=== PATIENT | female | born 1990 | race Caucasian/White ===

== ENCOUNTER 2020-12-01 10:51 | Emergency (ER) | payer OTHER, SELFPAY ==
[2020-12-01] VITALS (9 sets, daily range): BP systolic 101–153; BP diastolic 59–105; PULSE 92–123; RESP 15–20; TEMP 36.7–37.3; O2SAT 97–100; BMI 21.0
--- NOTE | 2020-12-01 10:59 | ED_ITS ---
HPI - Overdose General Chief Complaint: Psychiatric Symptoms Stated Complaint: INTENTIONAL MED OD LAST NIGHT 9PM Time Seen by Provider: 12/01/20 10:56 Source: patient and EMS Mode of arrival: EMS Limitations: no limitations History of Present Illness HPI Narrative: 30 yo female jose she took 30 to possibly 60 tabs of 10mg amitryptiline and fluoxetine 10mg which she takes for SI brought to ED after co- worker checked on her no prior attempts in past, denies prior psychiatric admissions complaint: intentional overdose Onset (ago): day(s) (last night at 930pm) Timing confirmed by: other (self) Intent: suicide attempt How Overdose Was Discovered: other (co worker came over to check on her) Context: Intentional Overdose: other Treatments Prior to Arrival: none Related Data Allergies Allergy/AdvReac Type Severity Reaction Status Date / Time No Known Allergies Allergy Verified 12/01/20 10:56 Review of Systems Review of Systems: Constitutional : No Fever, No Chills ENT/Mouth : No Ear Pain, No Nasal Congestion, No sore throat Eyes: No Eye Pain, No Swelling, No Redness Cardiovascular : No Chest Pain, No SOB Respiratory : No Cough, No Sputum, No Dyspnea Gastrointestinal : No Nausea, No Vomiting, No Diarrhea, No Hematochezia, No Melena Genitourinary : No Dysuria, No Urinary Frequency, No Hematuria Musculoskeletal : No Myalgias Skin : No Skin Lesions, No rash Neuro : No Weakness, No Numbness, No Paresthesias, No Dizziness, No Headache Psych : positive Anxiety, positive Depression, positive SI no HI Heme/Lymph: No Lymphadenopathy Endocrine : No Polyuria, No Polydipsia All other systems reviewed and are negative [facility] Past Medical History Attestation statement: The following information was validated with the patient. Medical History Anxiety Depression Social History Social History (Updated 12/01/20 @ 11:14 by Ginny Magaña DO) Alcohol intake: current Smoking Status: Never smoker Use of substances other than those prescribed or required for medical reasons: No Advance Directives: No Advance Directives Information Provided: No Physical Exam Vital Signs: Vital Signs: Last Vital Signs Temp 99.2 F 12/01/20 11:23 Pulse 112 H 12/01/20 12:49 Resp 16 02/25/21 12:49 BP 121/85 12/01/20 12:49 Pulse Ox 99 12/01/20 12:49 Body Mass Index 21.0 Appearance: Alert. Oriented X3. Anxious, mild acute distress. Eyes: Pupils equal, round and reactive to light. 4mm ENT: Pharynx normal. Neck: Normal inspection. Neck supple. CVS: Normal heart rate and rhythm. Pulses normal. Respiratory: No respiratory distress. Breath sounds normal. Abdomen: Soft and nontender. Skin: Skin warm and dry. Normal skin color. Normal skin turgor. Extremities: No lower extremity edema. No calf ttp Neuro: Oriented X 3. No motor deficit. No sensory deficit. 3+ bilateral DTR and 2 beat clonus Psych: anxiety, + depression, + SI Course Course Course Narrative: much improved after ativan - she is resting at this time, VS improved HR 102, pupils 3mm reactive, 1 beat clonus, repeat EKG ordered, will then consult poison control to reasses timeframe. signed out pending full clearance, RN to repeat call poison control Patient placed in physician observation at 320pm. The indication for obse rvation is that the patient needs more time to see if her overdose symptoms improve or if she will need to be admitted. At this time the patient is well developed well nourished, lungs clear, she does have tachycardia low 100s, RRR, abd is nontender, neuro is intact. signed out to Dr. Harris pending full workup MDM - Overdose MDM Narrative Medical decision making narrative: 30 yo female with fluoxetine and amitryptiline overdose 930pm last night in SI attempt will need tox labs, ativan for anxiety, EKG, call to poison control, once medically cleared will need crisis consult Lab Data Result diagrams: 12/01/20 11:28 12/01/20 11:29 Labs: Lab Results 12/01/20 12/01/20 12/01/20 Range/Units 11:20 11:20 11:20 WBC (4.8-10.8) X10*3/uL RBC (4.20-5.50) X10*6/uL Hgb (12.0-16.0) g/dl Hct (37-47) % MCV (80-98) fL MCH (27.0-33.0) pg MCHC (31.0-35.0) g/dl RDW (11.0-16.0) % Plt Count (160-400) X10*3/uL MPV (9.4-12.3) fL Immature Gran % (Auto) (0.0-0.4) % Neut % (Auto) (45-73) % Lymph % (Auto) (20-40) % Harlan % (Auto) (2-11) % Eos % (Auto) (0-4) % Baso % (Auto) (0-2) % Lymph # (Auto) (1.2-4.9) X10*3/uL [place] # (Auto) (0.1-1.2) X10*3/uL Eos # (Auto) (0.0-0.4) X10*3/uL Baso # (Auto) (0.0-0.2) X10*3/uL Abs Immat Gran (auto) (0.00-0.03) X10*3/uL Absolute Neuts (auto) (2.0-8.3) X10*3/uL Absolute Nucleated RBC (0.0-0.012) X10*3/uL Nucleated RBC % (auto) (0.0-0.2) /100WBC PT (10.8-13.0) SEC INR (0.9-1.1) APTT (24.1-38.0) SEC VBG pH (7.32-7.43) VBG pCO2 mmHg VBG pO2 mmHg VBG HCO3 mmol/L VBG O2 Saturation % VBG Base Excess mmol/L Sodium (135-145) mmol/L Potassium (3.3-5.1) mmol/L Chloride (96-108) mmol/L Carbon Dioxide (22-29) mmol/L Anion Gap (12-20) BUN (9-16) mg/dL Creatinine (0.5-1.4) mg/dL Estim Creat Clear Calc Estimated GFR Random Glucose (60-115) mg/dL Calcium (8.4-10.2) mg/dL Magnesium (1.6-2.6) mg/dL Total Bilirubin (0.0-1.0) mg/dL Direct Bilirubin (0.0-0.5) mg/dL AST (5-31) U/L ALT (0-31) U/L Alkaline Phosphatase (39-117) U/L Total Protein (6.5-8.0) g/dL Albumin (3.5-5.0) g/dL Urine Color YELLOW Urine Appearance CLEAR Urine pH 5.5 (5.0-8.0) Ur Specific [place] 1.020 (1.005-1.025) Urine Protein NEG (NEG-TRACE) MG/DL Urine Glucose (UA) NEG (NEG) MG/DL Urine Ketones NEG (NEG) MG/DL Urine Blood NEG (NEG) Urine Nitrite NEG (NEG) Ur Leukocyte Esterase NEG (NEG) Urine Test NEGATIVE (NEGATIVE) Salicylates (15-30) mg/dL Urine Opiates Screen Not Detected (Not Detect) Acetaminophen (<30) mcg/mL Ur Barbiturates Screen Not Detected (Not Detect) Ur Phencyclidine Scrn Not Detected (Not Detect) Ur Amphetamines Screen Not Detected (Not Detect) U Benzodiazepines Scrn Not Detected (Not Detect) Urine Cocaine Screen Not Detected (Not Detect) U Marijuana (THC) Screen Not Detected (Not Detect) Ethyl Alcohol mg/dL Acetone, Qual (Negative) COVID-19 (DAMARIS) (Negative) COVID-19 Clin Com 12/01/20 12/01/20 12/01/20 Range/Units 11:24 11:28 11:28 WBC 11.2 H (4.8-10.8) X10*3/uL RBC 4.39 (4.20-5.50) X10*6/uL Hgb 13.4 (12.0-16.0) g/dl Hct 40.3 (37-47) % MCV 91.8 (80-98) fL MCH 30.5 (27.0-33.0) pg MCHC 33.3 (31.0-35.0) g/dl RDW 12.3 (11.0-16.0) % Plt Count 335 (160-400) X10*3/uL MPV 9.5 (9.4-12.3) fL Immature Gran % (Auto) 0.3 (0.0-0.4) % Neut % (Auto) 83.3 H (45-73) % Lymph % (Auto) 13.0 L (20-40) % Harlan % (Auto) 2.7 (2-11) % Eos % (Auto) 0.3 (0-4) % Baso % (Auto) 0.4 (0-2) % Lymph # (Auto) 1.5 (1.2-4.9) X10*3/uL [place]lan # (Auto) 0.3 (0.1-1.2) X10*3/uL Eos # (Auto) 0.0 (0.0-0.4) X10*3/uL Baso # (Auto) 0.1 (0.0-0.2) X10*3/uL Abs Immat Gran (auto) 0.03 (0.00-0.03) X10*3/uL Absolute Neuts (auto) 9.3 H (2.0-8.3) X10*3/uL Absolute Nucleated RBC 0.000 (0.0-0.012) X10*3/uL Nucleated RBC % (auto) 0.0 (0.0-0.2) /100WBC PT 11.5 (10.8-13.0) SEC INR 1.0 (0.9-1.1) APTT 28.4 (24.1-38.0) SEC VBG pH (7.32-7.43) VBG pCO2 mmHg VBG pO2 mmHg VBG HCO3 mmol/L VBG O2 Saturation % VBG Base Excess mmol/L Sodium (135-145) mmol/L Potassium (3.3-5.1) mmol/L Chloride (96-108) mmol/L Carbon Dioxide (22-29) mmol/L Anion Gap (12-20) BUN (9-16) mg/dL Creatinine (0.5-1.4) mg/dL Estim Creat Clear Calc Estimated GFR Random Glucose (60-115) mg/dL Calcium (8.4-10.2) mg/dL Magnesium (1.6-2.6) mg/dL Total Bilirubin (0.0-1.0) mg/dL Direct Bilirubin (0.0-0.5) mg/dL AST (5-31) U/L ALT (0-31) U/L Alkaline Phosphatase (39-117) U/L Total Protein (6.5-8.0) g/dL Albumin (3.5-5.0) g/dL Urine Color Urine Appearance Urine pH (5.0-8.0) Ur Specific [place] (1.005-1.025) Urine Protein (NEG-TRACE) MG/DL Urine Glucose (UA) (NEG) MG/DL Urine Ketones (NEG) MG/DL Urine Blood (NEG) Urine Nitrite (NEG) Ur Leukocyte Esterase (NEG) Urine Test (NEGATIVE) Salicylates (15-30) mg/dL Urine Opiates Screen (Not Detect) Acetaminophen (<30) mcg/mL Ur Barbiturates Screen (Not Detect) Ur Phencyclidine Scrn (Not Detect) Ur Amphetamines Screen (Not Detect) U Benzodiazepines Scrn (Not Detect) Urine Cocaine Screen (Not Detect) U Marijuana (THC) Screen (Not Detect) Ethyl Alcohol mg/dL Acetone, Qual (Negative) COVID-19 (DAMARIS) Negative (Negative) COVID-19 Clin Com See Note 12/01/20 12/01/20 12/01/20 Range/Units 11:28 11:28 11:29 WBC (4.8-10.8) X10*3/uL RBC (4.20-5.50) X10*6/uL Hgb (12.0-16.0) g/dl Hct (37-47) % MCV (80-98) fL MCH (27.0-33.0) pg MCHC (31.0-35.0) g/dl RDW (11.0-16.0) % Plt Count (160-400) X10*3/uL MPV (9.4-12.3) fL Immature Gran % (Auto) (0.0-0.4) % Neut % (Auto) (45-73) % Lymph % (Auto) (20-40) % Harlan % (Auto) (2-11) % Eos % (Auto) (0-4) % Baso % (Auto) (0-2) % Lymph # (Auto) (1.2-4.9) X10*3/uL [place] # (Auto) (0.1-1.2) X10*3/uL Eos # (Auto) (0.0-0.4) X10*3/uL Baso # (Auto) (0.0-0.2) X10*3/uL Abs Immat Gran (auto) (0.00-0.03) X10*3/uL Absolute Neuts (auto) (2.0-8.3) X10*3/uL Absolute Nucleated RBC (0.0-0.012) X10*3/uL Nucleated RBC % (auto) (0.0-0.2) /100WBC PT (10.8-13.0) SEC INR (0.9-1.1) APTT (24.1-38.0) SEC VBG pH (7.32-7.43) VBG pCO2 mmHg VBG pO2 mmHg VBG HCO3 mmol/L VBG O2 Saturation % VBG Base Excess mmol/L Sodium 142 (135-145) mmol/L Potassium 4.6 (3.3-5.1) mmol/L Chloride 108 (96-108) mmol/L Carbon Dioxide 27 (22-29) mmol/L Anion Gap 12 (12-20) BUN 14 (9-16) mg/dL Creatinine 0.90 (0.5-1.4) mg/dL Estim Creat Clear Calc 71.6 Estimated GFR > 60 Random Glucose 102 (60-115) mg/dL Calcium 9.3 (8.4-10.2) mg/dL Magnesium 2.0 (1.6-2.6) mg/dL Total Bilirubin 0.3 (0.0-1.0) mg/dL Direct Bilirubin 0.2 (0.0-0.5) mg/dL AST 22 (5-31) U/L ALT 31 (0-31) U/L Alkaline Phosphatase 79 (39-117) U/L Total Protein 7.5 (6.5-8.0) g/dL Albumin 4.3 (3.5-5.0) g/dL Urine Color Urine Appearance Urine pH (5.0-8.0) Ur Specific [place] (1.005-1.025) Urine Protein (NEG-TRACE) MG/DL Urine Glucose (UA) (NEG) MG/DL Urine Ketones (NEG) MG/DL Urine Blood (NEG) Urine Nitrite (NEG) Ur Leukocyte Esterase (NEG) Urine Test (NEGATIVE) Salicylates < 5.0 L (15-30) mg/dL Urine Opiates Screen (Not Detect) Acetaminophen < 1 (<30) mcg/mL Ur Barbiturates Screen (Not Detect) Ur Phencyclidine Scrn (Not Detect) Ur Amphetamines Screen (Not Detect) U Benzodiazepines Scrn (Not Detect) Urine Cocaine Screen (Not Detect) U Marijuana (THC) Screen (Not Detect) Ethyl Alcohol < 10 mg/dL Acetone, Qual Negative (Negative) COVID-19 (DAMARIS) (Negative) COVID-19 Clin Com 12/01/20 Range/Units 12:21 WBC (4.8-10.8) X10*3/uL RBC (4.20-5.50) X10*6/uL Hgb (12.0-16.0) g/dl Hct (37-47) % MCV (80-98) fL MCH (27.0-33.0) pg MCHC (31.0-35.0) g/dl RDW (11.0-16.0) % Plt Count (160-400) X10*3/uL MPV (9.4-12.3) fL Immature Gran % (Auto) (0.0-0.4) % Neut % (Auto) (45-73) % Lymph % (Auto) (20-40) % Harlan % (Auto) (2-11) % Eos % (Auto) (0-4) % Baso % (Auto) (0-2) % Lymph # (Auto) (1.2-4.9) X10*3/uL [place] # (Auto) (0.1-1.2) X10*3/uL Eos # (Auto) (0.0-0.4) X10*3/uL Baso # (Auto) (0.0-0.2) X10*3/uL Abs Immat Gran (auto) (0.00-0.03) X10*3/uL Absolute Neuts (auto) (2.0-8.3) X10*3/uL Absolute Nucleated RBC (0.0-0.012) X10*3/uL Nucleated RBC % (auto) (0.0-0.2) /100WBC PT (10.8-13.0) SEC INR (0.9-1.1) APTT (24.1-38.0) SEC VBG pH 7.39 (7.32-7.43) VBG pCO2 38 mmHg VBG pO2 39 mmHg VBG HCO3 23 mmol/L VBG O2 Saturation 67.0 % VBG Base Excess -0.9 mmol/L Sodium (135-145) mmol/L Potassium (3.3-5.1) mmol/L Chloride (96-108) mmol/L Carbon Dioxide (22-29) mmol/L Anion Gap (12-20) BUN (9-16) mg/dL Creatinine (0.5-1.4) mg/dL Estim Creat Clear Calc Estimated GFR Random Glucose (60-115) mg/dL Calcium (8.4-10.2) mg/dL Magnesium (1.6-2.6) mg/dL Total Bilirubin (0.0-1.0) mg/dL Direct Bilirubin (0.0-0.5) mg/dL AST (5-31) U/L ALT (0-31) U/L Alkaline Phosphatase (39-117) U/L Total Protein (6.5-8.0) g/dL Albumin (3.5-5.0) g/dL Urine Color Urine Appearance Urine pH (5.0-8.0) Ur Specific [place] (1.005-1.025) Urine Protein (NEG-TRACE) MG/DL Urine Glucose (UA) (NEG) MG/DL Urine Ketones (NEG) MG/DL Urine Blood (NEG) Urine Nitrite (NEG) Ur Leukocyte Esterase (NEG) Urine Test (NEGATIVE) Salicylates (15-30) mg/dL Urine Opiates Screen (Not Detect) Acetaminophen (<30) mcg/mL Ur Barbiturates Screen (Not Detect) Ur Phencyclidine Scrn (Not Detect) Ur Amphetamines Screen (Not Detect) U Benzodiazepines Scrn (Not Detect) Urine Cocaine Screen (Not Detect) U Marijuana (THC) Screen (Not Detect) Ethyl Alcohol mg/dL Acetone, Qual (Negative) COVID-19 (DAMARIS) (Negative) COVID-19 Clin Com ECG Data Attestation: I personally reviewed and interpreted this ECG as follows: ECG interpretation date: 12/01/20 ECG interpretation time: 11:23 Interpretation: Rate: 120 Rhythm: sinus tachycardia [place]: normal Normal P waves. Normal CELE. Normal QRS complex. ST T wave : normal qTC: normal prior studies: no acute ischemia The study has been interpreted contemporaneously by me. . EKG# 2 1234pm Rate: 113 Rhythm: sinus tachycardia [place]: normal Normal P waves. Normal CELE. Normal QRS complex. ST T wave : normal qTC: normal prior studies: no acute ischemia The study has been interpreted contemporaneously by me. . EKG #3 330pm Rate: 111 Rhythm: sinus tachycardia [place]: normal Normal P waves. Normal CELE. Normal QRS complex. ST T wave : normal qTC: normal prior studies: no acute ischemia The study has been interpreted contemporaneously by me. . Discharge Plan Discharge Clinical Impression: Suicidal ideation Depression Qualifiers: Depression Type: unspecified Qualified Code(s): F32.9 - Major depressive disorder, single episode, unspecified Overdose Qualifiers: Encounter type: initial encounter Injury intent: intentional self-harm Qualified Code(s): T50.902A - Poisoning by unspecified drugs, medicaments and biological substances, intentional self-harm, initial encounter
--- NOTE | 2020-12-01 11:00 | ECG_ITS ---
Test Reason : OVERDOSE Blood Pressure : / mmHG Vent. Rate : 120 BPM Atrial Rate : 120 BPM P-R Int : 132 ms QRS Dur : 078 ms QT Int : 324 ms P-R-T Axes : 073 058 037 degrees QTc Int : 457 ms Sinus tachycardia Possible Left atrial enlargement Borderline ECG No previous ECGs available Referred By: Ginny Magaña Electronically Signed By:ELENA BOLIVAR MD
[2020-12-01 11:40] LABS: MANUAL DIFF FLAG NO
[2020-12-01 11:43] LABS: Basophils Absolute Auto 0.1 X10*3/uL (0.0-0.2); Basophils Percent Auto 0.4 % (0-2); Eosinophils Percent Auto 0.3 % (0-4); Hematocrit 40.3 % (37-47); Hemoglobin 13.4 g/dl (12.0-16.0); Imm Gran Abs Auto 0.03 X10*3/uL (0.00-0.03); Imm Gran Pct Auto 0.3 % (0.0-0.4); Lymphocytes Absolute Auto 1.5 X10*3/uL (1.2-4.9); Mean Corpuscular HGB Conc 33.3 g/dl (31.0-35.0); Mean Corpuscular Hemoglobin 30.5 pg (27.0-33.0); Mean Corpuscular Volume 91.8 fL (80-98); Mean Platelet Volume 9.5 fL (9.4-12.3); Monocytes Absolute Auto 0.3 X10*3/uL (0.1-1.2); Monocytes Percent Auto 2.7 % (2-11); Neutrophils Absolute Auto 9.3 X10*3/uL (2.0-8.3); Neutrophils Percent Auto 83.3 % (45-73); Platelet Count 335 X10*3/uL (160-400); Red Blood Count 4.39 X10*6/uL (4.20-5.50); Red Cell Distribution Width 12.3 % (11.0-16.0); White Blood Count 11.2 X10*3/uL (4.8-10.8)
[2020-12-01 11:48] LABS: Glucose Urine UA NEG (NEG); Leukocyte Esterase Urine NEG (NEG); Nitrite Urine NEG (NEG); PH 5.5 (5.0-8.0); Urine Blood NEG (NEG); Urine Ketones NEG (NEG); Urine Protein NEG (NEG-TRACE)
[2020-12-01 11:48] LABS: Prothrombin Time 11.5 SEC (10.8-13.0)
[2020-12-01 11:51] LABS: Partial Thromboplastin Time 28.4 SEC (24.1-38.0)
[2020-12-01 11:59] LABS: COVID-19 Test Negative (Negative)
[2020-12-01 12:01] LABS: Appearance Urine CLEAR; Color Urine YELLOW; UPreg QC Valid YES; Urine Pregnancy NEGATIVE (NEGATIVE)
[2020-12-01 12:04] LABS: Ethanol < 10 mg/dL
[2020-12-01 12:08] LABS: Alanine Aminotransferase 31 U/L (0-31); Albumin Level 4.3 g/dL (3.5-5.0); Alkaline Phosphatase 79 U/L (39-117); Anion Gap 12 (12-20); Aspartate Amino Transferase 22 U/L (5-31); Bilirubin Direct 0.2 mg/dL (0.0-0.5); Bilirubin Total 0.3 mg/dL (0.0-1.0); Blood Urea Nitrogen 14 mg/dL (9-16); Calcium 9.3 mg/dL (8.4-10.2); Carbon Dioxide 27 mmol/L (22-29); Chloride 108 mmol/L (96-108); Creatinine Clr Calc Pharmacy 71.6; Estimated Glomerular Filt Rate > 60; Glucose Random 102 mg/dL (60-115); Potassium 4.6 mmol/L (3.3-5.1); Sodium 142 mmol/L (135-145); Total Protein 7.5 g/dL (6.5-8.0)
[2020-12-01 12:11] LABS: Salicylate < 5.0 mg/dL (15-30)
[2020-12-01] MEDS: LORazepam 2 MG/ML VIAL 0.5 MG IVPUSH (12:13)
[2020-12-01] MEDS: 0.9 % Sodium Chloride 1,000 ML 999 ML IVCONT ×2 (12:14→20:42)
[2020-12-01 12:31] LABS: Base Excess VBG -0.9 mmol/L; HCO3 VBG 23 mmol/L; PCO2 VBG 38 mmHg; PO2 VBG 39 mmHg; pH VBG 7.39 (7.32-7.43)
[2020-12-01 12:32] LABS: Amphetamine Screen Urine Not Detected (Not Detect); Barbiturates, Urine Not Detected (Not Detect); Benzodiazepines Screen Urine Not Detected (Not Detect); Cannabinoid Screen Urine Not Detected (Not Detect); Cocaine Screen Urine Not Detected (Not Detect); Opiate Screen Urine Not Detected (Not Detect); Phencyclidine Screen Urine Not Detected (Not Detect)
[2020-12-01 12:41] LABS: Acetone, serum QL Negative (Negative)
[2020-12-01] MEDS: LORazepam 2 MG/ML VIAL 1 MG IVPUSH ×2 (12:48→20:42)
--- NOTE | 2020-12-01 13:00 | PC.NURSE ---
Spoke with poison Control, state to monitor patient for seizure, repeat EKGs every couple hours, monitor heart rate, and check to see if patient's dizziness subsides. Labs Obtained. Pt calm, cooperative. Verbalizes understanding of current plan of care. will continue to monitor.
[2020-12-01 13:04] LABS: Acetaminophen LAB < 1 mcg/mL (<30)
--- NOTE | 2020-12-01 14:00 | ECG_ITS ---
Test Reason : REPEAT Blood Pressure : / mmHG Vent. Rate : 113 BPM Atrial Rate : 113 BPM P-R Int : 136 ms QRS Dur : 078 ms QT Int : 320 ms P-R-T Axes : 073 055 038 degrees QTc Int : 438 ms Sinus tachycardia Possible Left atrial enlargement Borderline ECG When compared with ECG of 01-DEC-2020 11:14, No significant change was found Referred By: Ginny Magaña Electronically Signed By:ELENA BOLIVAR MD
--- NOTE | 2020-12-01 15:08 | ECG_ITS ---
Test Reason : OVERDOSE Blood Pressure : / mmHG Vent. Rate : 111 BPM Atrial Rate : 111 BPM P-R Int : 138 ms QRS Dur : 078 ms QT Int : 322 ms P-R-T Axes : 071 049 035 degrees QTc Int : 437 ms Sinus tachycardia Possible Left atrial enlargement Borderline ECG When compared with ECG of 01-DEC-2020 12:29, No significant change was found Referred By: Ginny Magaña Electronically Signed By:ELENA BOLIVAR MD
--- NOTE | 2020-12-01 15:10 | PC.NURSE ---
Spoke again with Poison Control, who state patient can't be cleared untill patient's heartrate begins staying below 100 and that patient no longer feeling dizziness.
--- NOTE | 2020-12-01 17:42 | PC.NURSE ---
Spoke with Poison control again, asked for this nurse to update them with repeat EKG at 1800 when EKG is obtained.
--- NOTE | 2020-12-01 18:00 | ECG_ITS ---
Test Reason : OVERDOSE Blood Pressure : / mmHG Vent. Rate : 107 BPM Atrial Rate : 107 BPM P-R Int : 132 ms QRS Dur : 084 ms QT Int : 350 ms P-R-T Axes : 057 012 022 degrees QTc Int : 467 ms Sinus tachycardia Septal infarct , age undetermined Abnormal ECG When compared with ECG of 01-DEC-2020 15:25, T wave inversion more evident in Anterior leads Referred By: Ginny Magaña Electronically Signed By:ELENA BOLIVAR MD
--- NOTE | 2020-12-01 18:17 | MHC.CARE ---
CARE Team speaks with USAMA Le. Pt is not yet medically cleared. Pt should be referred to CARE Team for assessment once medically cleared. Insurance is [employer]. TATUM Le aware of plan and will refer to CARE Team once medically cleared and no longer on poison control protocol.
--- NOTE | 2020-12-01 19:38 | ECG_ITS ---
Test Reason : PRIOR ABNORMAL EKG Blood Pressure : / mmHG Vent. Rate : 126 BPM Atrial Rate : 126 BPM P-R Int : 134 ms QRS Dur : 080 ms QT Int : 326 ms P-R-T Axes : 069 048 015 degrees QTc Int : 472 ms Sinus tachycardia Left atrial enlargement Borderline ECG When compared with ECG of 01-DEC-2020 18:28, Criteria for Septal infarct are no longer Present Referred By: Sky Harris Electronically Signed By:ELENA BOLIVAR MD
--- NOTE | 2020-12-01 19:54 | PC.NURSE ---
SLEEPING IN ROOM. BREATHING EVEN, NON-LABORED. NO APPARENT DISTRESS AT THIS TIME. SINUS TACH ON SURVEY METHODOLOGIST. SITTER MAINTAINED.
--- NOTE | 2020-12-01 20:43 | PC.NURSE ---
MEDICATED CHARTED. PATIENT HR 120S WHEN THIS NURSE ENTERED ROOM. DENIES FEELING ANXIOUS AT THIS TIME. BREATHING EVEN, NON-LABORED. NO APPARENT DISTRESS.
[2020-12-02] VITALS: BP 132/82; PULSE 96; RESP 18; O2SAT 96
[2020-12-02 01:39] VITALS: BP 137/86; PULSE 94; RESP 18; TEMP 37.2; O2SAT 97
--- NOTE | 2020-12-02 02:11 | MHC.CARE ---
CARE Team has completed assessment. Plan is for involuntary inpt admission. Pt is being held on sect 12 until a bed is found.
--- NOTE | 2020-12-02 02:55 | MHC.CARE ---
Bedsearcher from [facility] [phone]. [phone] Li will be calling to check in on the pt, she is conducting a bedsearch for units within their network.
--- NOTE | 2020-12-02 02:58 | PC.NURSE ---
PATIENT SEC 12 BED SEARCH. PATIENT'S INSURANCE PATTI, WILL BE DOING THE BED SEARCH OVERNIGHT.
--- NOTE | 2020-12-02 03:00 | PC.NURSE ---
PATIENT CONTINUES TO BED DIFFICULT TO AROUSE. SUCTIONED THICK LIGHT YELLOW COLORED SPUTUM IN BACK OF THROAT. ORAL MUCOSA DRY. SINUS TACH ON FILLING TECHNICIAN.
[2020-12-02 03:52] VITALS: RESP 16
[2020-12-02 06:00] VITALS: BP 120/83; PULSE 97; RESP 16; TEMP 36.9; O2SAT 97
--- NOTE | 2020-12-02 07:54 | PC.NURSE ---
report taken from fili rodríguez pt resting in bed, rr even/unlabored. awaiting medical clearance and pt will be seen by care team. ambulated to bathroom w steady gait. mercedes.
--- NOTE | 2020-12-02 10:24 | MHC.CARE ---
CARE team alerted by ED that pt was possible accept to [facility]. CARE team contacted [facility] spoke with Naomi who reviewed case and accepted pt to room 615A to Dr Tamayo. TRUE Miguel Ángel Randy [phone], unit number [id number] for nurse to nurse. [facility] requested faxed copy of the [id number] which was faxed by CARE to [phone]. Pts auth for admission to [facility] was confirmed by Daniela vasquez/moreno Jefferson with auth number ([id number]). Pts nurse to nurse was completed and ED will arrange EMS transfer shortly.
--- NOTE | 2020-12-02 11:18 | PC.NURSE ---
report given to ashley rodríguez at [facility] psych unit. pt accepted to [facility] through care team.
== END 2020-12-02 12:00 ==
PROVIDERS: Emergency Provider Emergency Medicine
DX: F32.9 Major depressive disorder, single episode, unspecified (principal); T43.012A Poisoning by tricyclic antidepressants, intentional self-harm, initial encounter; T43.222A Poisoning by selective serotonin reuptake inhibitors, intentional self-harm, initial encounter; R00.0 Tachycardia, unspecified; Y92.019 Unspecified place in single-family (private) house as the place of occurrence of the external cause; Z20.822 Contact with and (suspected) exposure to COVID-19; F41.9 Anxiety disorder, unspecified
CPT/HCPCS: 36415; 80048; 80076; 80143; 80179; 80307; 80320; 81003; 81025; 82009; 82803; 83735; 85025; 85610; 85730; 87635; 93005; 96360; 96361; 96374; 96376; 99285; J2060